=== PATIENT | male | born 1975 | race Hispanic/Latino ===

== ENCOUNTER 2025-03-03 12:00 | Emergency (ER) | payer BC, MEDICARE ==
[2025-03-03 12:51] LABS: #Basophils 0.05 10x3/uL (0.0-0.2); #Eosinophils 0.34 10x3/uL (0.0-0.5); #Monocytes 0.74 10x3/uL (0.0-1.1); #Neutrophils 3.49 10x3/uL (1.5-8.4); %Basophils 0.8 % (0.0-2.0); %Eosinophils 5.3 % (0.0-6.0); %Lymphocytes 27.5 % (18.0-47.0); %Monocytes 11.6 % (0.0-10.0); %Neutrophils 54.5 % (40.0-75.0); Hematocrit 43.8 % (38.8-50.0); Hemoglobin 14.1 g/dL (13.5-17.5); Mean Corpuscular Hemoglobin 27.8 pg (27.0-33.0); Mean Corpuscular Volume 86.4 fL (81.2-95.1); Platelet Count 298 10x3/uL (150-450); Red Blood Cell (RBC) Count 5.07 10x6/uL (4.32-5.72); White Blood Cell (WBC) Count 6.40 10x3/uL (3.5-10.5)
[2025-03-03 13:10] LABS: ALT (SGPT) 14 U/L (Less than 45); AST (SGOT) 14 U/L (11-34); Albumin 3.8 g/dL (3.1-4.5); Alkaline Phosphatase 83 U/L (40-110); Anion Gap 12 mmol/L (10-20); BUN (Urea Nitrogen) 13 mg/dL (8.9-20.6); Bilirubin, Total 0.2 mg/dL (0.3-1.2); Calc. Creatinine Clearance 0 mL/min (70-130); Calcium 8.4 mg/dL (7.8-10.44); Carbon Dioxide 26 mmol/L (22-29); Chloride 105 mmol/L (98-107); Globulin 3.1 g/dL (2.4-3.5); Glucose 134 mg/dL (70-105); Lipase 20 U/L (8-78); Potassium 4.3 mmol/L (3.5-5.1); Sodium 139 mmol/L (136-145)
[2025-03-03 13:17] LABS: Troponin I 0.013 ng/mL (< 0.028)
[2025-03-03] MEDS ORDERED: Albuterol 2.5 MG (3 mL) NEB ONE (13:20)
[2025-03-03] MEDS ORDERED: diphenhydrAMINE 50 MG/ML VIAL ONE (13:23)
[2025-03-03] MEDS ORDERED: predniSONE 20 MG TAB ONE (13:23)
[2025-03-03] MEDS ORDERED: Famotidine/PF 20 mg/2ml Vial ONE (13:23)
== END 2025-03-03 15:57 | disposition home or self-care (01) ==
LOC: CSHERS 12:00
DX: L23.9 Allergic contact dermatitis, unspecified cause (principal); E11.9 Type 2 diabetes mellitus without complications; F17.210 Nicotine dependence, cigarettes, uncomplicated
CPT/HCPCS: 36415; 71045; 80053; 83690; 84484; 85025; 93005; 96372; 96374; 96375; J0169; J1200; J1308; J2272; J2919; J7512; J7611